=== PATIENT | male | born 2005 | race Caucasian/White ===

== ENCOUNTER 2024-05-04 16:38 | Emergency (ER) | payer OTHER ==
[2024-05-04] MEDS ORDERED: Glucagon 1 MG/ML KIT ONE (16:56)
== END 2024-05-04 17:25 | disposition home or self-care (01) ==
LOC: MADERS 16:38
DX: T18.128A Food in esophagus causing other injury, initial encounter (principal)
CPT/HCPCS: 96374; J1611